=== PATIENT | female | born 1970 | race Caucasian/White ===

== ENCOUNTER 2017-12-12 07:28 | Day surgery (SDC) | payer MEDICAID ==
[~2017-12-12 07:28] MED LIST: CEFAZOLIN 1 GM INJ
[2017-12-12] MEDS ORDERED: CEFAZOLIN 2 GM/50 ML (PMX) 50 ML IVPB (08:00)
[2017-12-12] MEDS ORDERED: SOD CHLORIDE 0.9% 1,000 ML IV (08:00)
[2017-12-12] MEDS ORDERED: HYDROmorphONE 1 MG/5 ML IV SYRINGE IV (08:30)
[2017-12-12] MEDS ORDERED: morphine (1 MG/ML) 10ML SYRINGE IV ×2 (08:30)
[2017-12-12] MEDS ORDERED: ALBUTEROL 0.083% (NEB) 2.5 MG/3 ML AMP HHN (08:30)
[2017-12-12] MEDS ORDERED: ONDANSETRON 4 MG INJ IV (08:30)
[2017-12-12] MEDS ORDERED: MEPERIDINE 25 MG INJ IV (08:30)
[2017-12-12] MEDS ORDERED: FENTAnyl 50 MCG/ML VIAL IV (08:30)
[2017-12-12] MEDS ORDERED: DIPHENHYDRAMINE 50 MG INJ IV (08:30)
[2017-12-12] MEDS ORDERED: LABETALOL HCL 20MG INJ IV (08:30)
[2017-12-12] MEDS ORDERED: OXYCODONE/ACETAMINOPHEN (5/325) TAB PO ×2 (08:30)
[2017-12-12] MEDS ORDERED: PROPOFOL 40 ML (08:46)
[2017-12-12] MEDS ORDERED: LIDOCAINE 2% (SDV) 5 ML INJ (08:48)
[2017-12-12] MEDS ORDERED: FENTAnyl 50 MCG/ML VIAL ×2 (08:48→09:28)
[2017-12-12] MEDS ORDERED: FAMOTIDINE 20 MG INJ (08:49)
[2017-12-12] MEDS ORDERED: DEXAMETHASONE 4 MG/ML 1 ML INJ (08:49)
[2017-12-12] MEDS ORDERED: MIDAZOLAM 1 MG/ML 2 ML INJ (08:49)
[2017-12-12] MEDS ORDERED: ONDANSETRON 4 MG INJ (08:49)
[2017-12-12] MEDS ORDERED: ACETAMINOPHEN 1000MG/100ML IV 100 ML (09:53)
[2017-12-12] MEDS ORDERED: HYDROCODONE/APAP (7.5/325) TAB PO (10:30)
[2017-12-12] MEDS: FENTAnyl 50 MCG/ML VIAL IV (10:53)
[2017-12-12] MEDS: HYDROmorphONE 1 MG/5 ML IV SYRINGE IV (10:54)
== END 2017-12-12 13:22 | disposition home or self-care (01) ==
LOC: SDS 07:28
DX: D24.1 Benign neoplasm of right breast (principal)
CPT/HCPCS: 19301; 84703; 88307